=== PATIENT | male | born 1965 | race Caucasian/White ===

== ENCOUNTER 2021-01-02 15:28 | Emergency (ER) | payer BC, SELFPAY ==
[2021-01-02 15:36] VITALS: BP 155/99; PULSE 61; RESP 16; TEMP 36.5; O2SAT 99
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
== END 2021-01-02 16:15 | disposition home or self-care (01) ==
PROVIDERS: Emergency Provider Emergency Medicine; PCP Naturopath
DX: S80.12XA Contusion of left lower leg, initial encounter (principal); V86.52XA Driver of snowmobile injured in nontraffic accident, initial encounter; Z53.29 Procedure and treatment not carried out because of patient's decision for other reasons
CPT/HCPCS: 99282; 99283